=== PATIENT | male | born 1990 | race Hispanic/Latino ===

== ENCOUNTER 2017-04-16 08:59 | Day surgery (SDC) | payer OTHER ==
[2017-04-15 16:34] VITALS: BP 144/76
[2017-04-15 16:38] LABS: BASOPHILS % (AUTO) 0.9 % (0.0-5.0); EOSINOPHILS % (AUTO) 1.2 % (0.0-8.0); HEMATOCRIT 45.4 % (42-54); LYMPHOCYTES % (AUTO) 30.9 % (21.0-51.0); MEAN CORPUSCULAR HEMOGLOBIN 31.5 pg (27.0-33.0); MEAN CORPUSCULAR HGB CONC 34.4 g/dL (32.0-36.0); MEAN CORPUSCULAR VOLUME 91.5 fL (79-99); MONOCYTES % (AUTO) 8.5 % (3.0-13.0); NEUTROPHILS % (AUTO) 58.5 % (40.0-77.0); PLATELET COUNT (AUTO) 260 K/uL (130-400); RED BLOOD CELL COUNT(AUTO) 4.96 MIL/uL (4.50-6.20); RED CELL DISTRIBUTION WIDTH 14.6 % (11.0-15.5); WHITE BLOOD COUNT (AUTO) 8.1 K/uL (4.8-10.8)
[2017-04-15 16:44] LABS: CREATININE 1.1 mg/dL (0.5-1.5); POTASSIUM 4.1 mmol/L (3.5-5.1)
[2017-04-16] VITALS (23 sets, daily range): BP systolic 122–156; BP diastolic 68–89
[~2017-04-16] VITALS: Ht 184.2 cm; Wt 101.2 kg
[2017-04-16] MEDS: CLINDAMYCIN 900 MG/D5% WATER 50 ML IV SCH ×2 (09:00→11:33)
[2017-04-16] MEDS ORDERED: LACTATED RINGERS 1000ML 1,000 ML IV ONE (09:13)
[2017-04-16] MEDS ORDERED: CLINDAMYCIN PHOSPHATE 150 MG/ML 6ML VIAL ONE (09:50)
[2017-04-16] MEDS ORDERED: NEOSTIGMINE 5MG/5ML SYR IV ONE (10:34)
[2017-04-16] MEDS ORDERED: PROPOFOL 10 MG/ML 20ML VIAL IV ONE ×2 (10:34→12:09)
[2017-04-16] MEDS ORDERED: FENTANYL CITRATE PF 50 MCG/1 ML 2ML VIAL ONE ×3 (10:34→14:34)
[2017-04-16] MEDS ORDERED: GLYCOPYRROLATE 0.2 MG/ML 5 ML VIAL ONE (10:34)
[2017-04-16] MEDS ORDERED: DEXAMETHASONE SOD PHOSPHATE 10MG/ML 1ML VIAL ONE (10:34)
[2017-04-16] MEDS ORDERED: SUCCINYLCHOLINE 200MG/10ML SYR ONE (10:34)
[2017-04-16] MEDS ORDERED: LIDOCAINE PF 2% 5ML ABBOJECT ONE (10:34)
[2017-04-16] MEDS ORDERED: ONDANSETRON HCL 4 MG/2 ML VIAL ONE (10:34)
[2017-04-16] MEDS ORDERED: ROPIVACAINE 0.5% 5MG/ML 30ML IJ ONE (10:38)
[2017-04-16] MEDS ORDERED: MIDAZOLAM HCL 1 MG/ML 2ML VIAL ONE (10:47)
[2017-04-16] MEDS ORDERED: PHENYLEPHRINE HCL 10 MG/ML 1ML VIAL IV ONE (11:42)
[2017-04-16] MEDS ORDERED: MEPERIDINE-PF 50 MG/ML SYG ONE ×2 (15:47→15:59)
== END 2017-04-16 18:34 | disposition home or self-care (01) ==
LOC: DAH 08:59
PROVIDERS: ATTEND Orthopaedic Surgery
DX: S83.512A Sprain of anterior cruciate ligament of left knee, initial encounter (principal); S83.252A Bucket-handle tear of lateral meniscus, current injury, left knee, initial encounter; W19.XXXA Unspecified fall, initial encounter; Y93.79 Activity, other specified sports and athletics; Y92.89 Other specified places as the place of occurrence of the external cause; Y99.9 Unspecified external cause status; Z88.0 Allergy status to penicillin; Z82.49 Family history of ischemic heart disease and other diseases of the circulatory system; Z87.891 Personal history of nicotine dependence
CPT/HCPCS: 29881; 29888; 36415; 76000; 80048; 85025; A4649 ×5; A4930 ×3; A6223; C1713; C1762; C1776; J0330; J1100; J2001; J2175 ×2; J2250; J2370; J2405; J2704 ×2; J2710; J2795; J3010 ×3; J3490; J7030; J7120